=== PATIENT | female | born 1960 | race Two or more races ===

== ENCOUNTER 2018-12-28 06:48 | Emergency (ER) | payer MEDICAID, OTHER ==
[~2018-12-28] VITALS: Ht 165.1 cm; Wt 110.3 kg
[~2018-12-28 06:48] MED LIST: AMOX1TAB64 PO; HYDR-3237 PO; INSU100I13 SQ; POLY17PO5 PO
[2018-12-28] MEDS ORDERED: METOCLOPRAMIDE 5 MG/ML, 2ML IVPush ONE (07:30)
[2018-12-28] MEDS ORDERED: KETOROLAC 30 MG/1 ML ONE (07:30)
[2018-12-28] MEDS ORDERED: DIPHENHYDRAMINE 50 MG/ML, 1ML IVPush ONE (07:30)
[2018-12-28] MEDS ORDERED: KETOROLAC 30 MG/1 ML IVPush ONE (07:30)
[2018-12-28] MEDS ORDERED: METOCLOPRAMIDE 5 MG/ML, 2ML ONE (07:30)
[2018-12-28] MEDS ORDERED: DIPHENHYDRAMINE 50 MG/ML, 1ML ONE (07:30)
[2018-12-28] MEDS ORDERED: SODIUM CHLORIDE FLUSH 10ML SYR IVF ONE (07:30)
--- NOTE | 2018-12-28 07:37 | NUR ---
PT AMBULATORY TO ROOM 14 W/ C/O L OCCIPITAL MIGRAINE DAVIS STARTED YESTERDAY MORNING. PT STATES HER DAVIS IS VERY PAINFUL. PT TEARFUL IN ROOM. PT STATES PHOTOPHOBIA AND NAUSEA. PT RESTING IN DARK ROOM. WARM BLANKET PROVIDED. PT MEDICATED PER SEP. CALL LIGHT IN REACH.
[2018-12-28 08:41] VITALS: BP 136/93
--- NOTE | 2018-12-28 08:41 | NUR ---
PT VERBALIZES PAIN DECREASED FROM 8/10 TO 4/10 AT THIS TIME. PT STATES SHE IS STARTING TO BE ABLE TO MOVE HEAD TO THE LEFT. ERP AWARE.
== END 2018-12-28 09:11 | disposition home or self-care (01) ==
LOC: ED 08:00
DX: G44.209 Tension-type headache, unspecified, not intractable (principal); E11.9 Type 2 diabetes mellitus without complications
CPT/HCPCS: 82962; 96374; 96375; 99283; J1200; J1885; J2765